=== PATIENT | male | born 1990 | race Caucasian/White ===

== ENCOUNTER 2017-06-01 06:15 | Emergency (ER) | payer SELFPAY ==
[~2017-06-01] VITALS: Ht 185.4 cm; Wt 78.3 kg
[2017-06-01 06:17] VITALS: BP 145/89
[2017-06-01] MEDS ORDERED: IBUPROFEN 200 MG TABLET ONE (06:58)
[2017-06-01] MEDS ORDERED: IBUPROFEN 200 MG TABLET PO ONE (07:00)
== END 2017-06-01 07:07 | disposition home or self-care (01) ==
LOC: ED 07:01
DX: K04.7 Periapical abscess without sinus (principal); K02.9 Dental caries, unspecified
CPT/HCPCS: 99283

== ENCOUNTER 2021-06-07 20:55 | Emergency (ER) | payer MEDICAID ==
[~2021-06-07] VITALS: Ht 182.9 cm; Wt 87.8 kg
[2021-06-07 20:58] VITALS: BP 161/103
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
--- NOTE | 2021-06-07 21:25 | NUR ---
PT IN GOWN, RESTING ON GURENY, AND PLACED ON CONTINUOUS MONITORING.
--- NOTE | 2021-06-07 22:02 | NUR ---
PT RESTING ON GURNEY, DENIES NEEDS AT THIS TIME.
[2021-06-07] MEDS ORDERED: MAALOX/HYOSCYAMINE/LIDOCAINE 45 ML BTL PO ONE (22:30)
[2021-06-07 22:32] LABS: BASOPHILS % (AUTO) 1 % (0-1); EOSINOPHILS % (AUTO) 1 % (1-7); LYMPHOCYTES % (AUTO) 17 % (22-44); MEAN CORPUSCULAR HEMOGLOBIN 28.4 pg (27.5-34.5); MEAN CORPUSCULAR HGB CONC 34.9 g/dL (33.2-36.2); MEAN PLATELET VOLUME 8.5 fL (7.4-10.4); MONOCYTES % (AUTO) 10 % (2-9); NEUTROPHILS % (AUTO) 72 % (42-75); PLATELET COUNT 374 x10^3/uL (130-400); RED BLOOD COUNT 5.66 x10^6/uL (4.38-5.82); RED CELL DISTRIBUTION WIDTH 13.9 % (9.4-14.8)
[2021-06-07] MEDS ORDERED: MAALOX/HYOSCYAMINE/LIDOCAINE 45 ML BTL ONE (22:36)
--- NOTE | 2021-06-07 22:45 | NUR ---
PT GIVEN GI COCKTAIL. ERP IN ROOM, EXPLAINED THAT WE ARE WAITING FOR LABS TO GET BACK AND TO CALL POISON CONTROL
[2021-06-07 22:48] LABS: ALANINE AMINOTRANSFERASE 25 U/L (12-78); ALBUMIN 4.8 g/dL (3.4-5.0); ANION GAP 9 mmol/L (5-15); CALCIUM 9.8 mg/dL (8.5-10.1); CHLORIDE 108 mmol/L (98-107); CREATININE 1.23 mg/dL (0.7-1.3)
[2021-06-07 22:51] LABS: ALKALINE PHOSPHATASE 91 U/L (45-117); BILIRUBIN,TOTAL 1.5 mg/dL (0.2-1.0); SALICYLATE LEVEL < 1.7 mg/dL (2.8-20.0); TOTAL PROTEIN 9.2 g/dL (6.4-8.2)
--- NOTE | 2021-06-07 23:09 | NUR ---
PT WALKED OUT BEFORE WE COULD CALL POISON CONTROL. PT WAS AMBULATORY WITH STEADY GAIT. PT ABLE TO DRINK WATER AND MEDICATION.
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
== END 2021-06-07 23:15 | disposition left against medical advice (07) ==
LOC: ED 22:59
DX: R10.13 Epigastric pain (principal); T51.1X1A Toxic effect of methanol, accidental (unintentional), initial encounter; F17.210 Nicotine dependence, cigarettes, uncomplicated; R00.0 Tachycardia, unspecified; F17.200 Nicotine dependence, unspecified, uncomplicated; X58.XXXA Exposure to other specified factors, initial encounter; Y93.89 Activity, other specified; Y92.89 Other specified places as the place of occurrence of the external cause; Y99.8 Other external cause status
CPT/HCPCS: 36415; 80053; 80299; 80320; 80329; 83930; 85025; 93005; 99284; 99406; G0480

== ENCOUNTER 2021-07-29 01:26 | Emergency (ER) | payer MEDICAID ==
[~2021-07-29] VITALS: Ht 182.9 cm; Wt 80.2 kg
[2021-07-29 03:45] VITALS: BP 130/87
--- NOTE | 2021-07-29 07:52 | NUR ---
RIGHT WRIST LACER/SHOULDER IMMOBILIZER APPLIED. EDUCATED ON HOW TO WEAR. WHAT TO WATCH OUT FOR. IMPORTANCE OF ARM REST AND F/U WITH ORTHO TEACH BACK SUCCESSFUL
== END 2021-07-29 07:54 | disposition home or self-care (01) ==
LOC: ED 07:40
DX: G56.31 Lesion of radial nerve, right upper limb (principal); R53.1 Weakness
CPT/HCPCS: 29125; 99283